=== PATIENT | female | born 1960 | race Caucasian/White ===

== ENCOUNTER 2021-01-14 08:39 | Emergency (ER) | payer BC ==
[2021-01-14] MEDS ORDERED: MOBIC15 MG PO (12:18)
[2021-01-14] MEDS ORDERED: NAPROSYN500 MG PO (12:18)
== END 2021-01-14 12:25 | disposition home or self-care (01) ==
LOC: ER1 08:39
DX: S82.62XA Displaced fracture of lateral malleolus of left fibula, initial encounter for closed fracture (principal); S82.52XA Displaced fracture of medial malleolus of left tibia, initial encounter for closed fracture; X50.1XXA Overexertion from prolonged static or awkward postures, initial encounter
CPT/HCPCS: 73610; 99283